=== PATIENT | female | born 1955 | race Asian ===

== ENCOUNTER 2018-11-19 01:24 | Emergency (ER) | payer OTHER ==
[~2018-11-19] VITALS: Ht 142.2 cm; Wt 59.0 kg
[2018-11-19 01:33] VITALS: Ht 142.2 cm; Wt 59.0 kg
[2018-11-19 03:44] VITALS: BP 138/88
== END 2018-11-19 03:44 | disposition home or self-care (01) ==
LOC: ED 01:24
DX: S00.83XA Contusion of other part of head, initial encounter (principal); I10 Essential (primary) hypertension; Y04.0XXA Assault by unarmed brawl or fight, initial encounter; Y93.89 Activity, other specified; Y92.89 Other specified places as the place of occurrence of the external cause; Y99.8 Other external cause status